=== PATIENT | male | born 1985 | race Caucasian/White ===

== ENCOUNTER 2017-03-12 04:34 | Emergency (ER) | payer OTHER ==
[~2017-03-12] VITALS: Ht 172.7 cm; Wt 75.3 kg
[2017-03-12 05:36] LABS: BASO # 0.1 K/mm3 (0.0-0.2); BASO % 0.8 % (0.0-1.0); EOS # 0.4 K/mm3 (0.0-0.50); EOS % 4.9 % (0.0-3.0); LARGE UNSTAINED CELL # 0.2 K/mm3 (0.0-0.4); LYMPH % 34.1 % (24.0-44.0); MEAN CORPUSCULAR HEMOGLOBIN 30.3 pg (27.0-33.0); MEAN CORPUSCULAR HGB CONC 35.3 g/dl (32.0-36.5); MEAN CORPUSCULAR VOLUME 85.8 fl (80.0-96.0); MONO # 0.5 K/mm3 (0.0-0.8); MONO % 6.1 % (0.0-5.0); NEUTROPHILS # 4.3 K/mm3 (1.8-7.7); NEUTROPHILS % 52.2 % (36.0-66.0); PLATELET COUNT, AUTOMATED 245 k/mm3 (150-450); RED CELL DISTRIBUTION WIDTH 12.4 % (11.5-14.5); WHITE BLOOD COUNT 8.3 K/mm3 (4.0-10.0)
[2017-03-12 05:57] LABS: ALBUMIN 4.2 GM/DL (3.2-5.2); ALBUMIN/GLOBULIN RATIO 1.24 (1.00-1.93); ALKALINE PHOSPHATASE 87 U/L (45-117); ALT/SGPT 23 U/L (12-78); AMYLASE 75 U/L (25-115); ANION GAP 5 MEQ/L (8-16); AST/SGOT 20 U/L (15-37); BILIRUBIN,DIRECT 0.1 MG/DL (0.0-0.2); BILIRUBIN,TOTAL 0.4 MG/DL (0.2-1.0); BLOOD UREA NITROGEN 20 MG/DL (7-18); CALCIUM LEVEL 8.9 MG/DL (8.5-10.1); CARBON DIOXIDE LEVEL 30 MEQ/L (21-32); CHLORIDE LEVEL 107 MEQ/L (98-107); CREATININE FOR GFR 1.24 MG/DL (0.70-1.30); GLOMERULAR FILTRATION RATE > 60.0 (>60); GLUCOSE, FASTING 89 MG/DL (70-105); SODIUM LEVEL 142 MEQ/L (136-145); TOTAL PROTEIN 7.6 GM/DL (6.4-8.2)
--- NOTE | 2017-03-12 07:10 | REPUSA ---
CLINICAL HISTORY: Abdominal pain. TECHNIQUE: Multiple axial, sagittal and coronal CT images were obtained through the abdomen and pelvi s without administration of oral or IV contrast material. COMMENTS: The liver is of uniform attenuation without mass or defect. There is no intra or extrahepatic biliary ductal dilatation. The spleen is normal. The gallbladder is within normal limits. The pancreas is of normal contour and attenuation characteristics. There is no evidence of adrenal mass. The kidneys are normal in size, shape and configuration. No renal or ureteral calculi are identified. There is no hydroureter or hydronephrosis. There is no evidence for appendicitis. There is no bowel wall thickening. No evidence for small or la rge bowel obstruction. There is no evidence of abdominal ascites or lymphadenopathy. There is no evidence of intrinsic or extrinsic bladder mass. There is no pelvic ascites or lymphadeno jada. Mild large bowel fecal stasis. Images of the lung bases show no evidence of pleural or parenchymal mass. There are no pleural effusi ons. The bony structures are free of lytic or blastic lesions. IMPRESSION: Mild large bowel fecal stasis. Fluid-filled mildly distended stomach. Mild gastroparesis. Appendicolith without associated inflammatory changes of the appendix. Thank you for your kind referral of this patient.
[2017-03-12] MEDS ORDERED: NAPR500T2 PO (09:14)
[2017-03-12 09:29] VITALS: BP 126/73
--- NOTE | 2017-03-12 09:47 | REP ---
HIGH-RESOLUTION SCROTAL SONOGRAPHY: HISTORY: Left pain. FINDINGS: High-resolution bilateral scrotal sonography shows no evidence of intratesticular mass lesion on either side. Testicular Doppler flow is normal bilaterally. Resistive indices are 0.54 on the right and 0.50 on the left by Doppler. Right testis measures 4.6 x 2.6 x 2.6 cm. Left testicular dimensions are 4.5 x 1.9 x 2.7 cm. There are two cysts in the right epididymis measuring 2 and 3 mm. There is a small left-sided hydrocele. Otherwise unremarkable. IMPRESSION: Small left-sided hydrocele. No intratesticular mass lesion seen. Normal Doppler flow to both testes. Signed by Mehdi Carrillo MD 03/12/2017 10:26 A
== END 2017-03-12 09:31 | disposition home or self-care (01) ==
LOC: M ED 05:24
DX: N43.3 Hydrocele, unspecified (principal)

== ENCOUNTER 2018-08-03 15:20 | Emergency (ER) | payer OTHER ==
[2018-08-03] MEDS: IBUPROFEN 600 MG TAB PO (16:49)
== END 2018-08-03 16:55 | disposition home or self-care (01) ==
LOC: M ED 15:20
DX: S20.212A Contusion of left front wall of thorax, initial encounter (principal); W22.8XXA Striking against or struck by other objects, initial encounter; Y92.89 Other specified places as the place of occurrence of the external cause; Z87.891 Personal history of nicotine dependence
CPT/HCPCS: 71101

== ENCOUNTER → 2018-11-21 | Outpatient (REF) | payer OTHER ==
[~2018-11-21] MED LIST: IBUP-1022 PO; NAPR-885 PO
[2018-11-22 14:47] LABS: INFLUENZA A AMPLIFICATION NEGATIVE (NEGATIVE); INFLUENZA B AMPLIFICATION NEGATIVE (NEGATIVE)
== END ==
LOC: M LAB REF 13:35
PROVIDERS: ATTEND Physician Assistant
DX: J02.9 Acute pharyngitis, unspecified (principal)

== ENCOUNTER → 2018-12-07 | Outpatient (REF) | payer OTHER | LOC: M SFHCPLAZ 11:28 | PROVIDERS: ATTEND Nurse Practitioner Family | DX: J02.9 Acute pharyngitis, unspecified (principal) ==

== ENCOUNTER → 2018-12-23 | Outpatient (REF) | payer OTHER ==
[2018-12-25 10:55] LABS: MONO REFLEX EBV COMP NEGATIVE (NEGATIVE)
[2018-12-28 00:06] LABS: EBV AB TO NUCLEAR ANTIGEN 45.2 U/mL (0.0-17.9); EBV VIRAL CAPSID AG IgM <36.0 U/mL (0.0-35.9)
[2018-12-29 00:08] LABS: CHLAMYDIA PHARYNGEAL APTIMA Negative (Negative); GC PHARYNGEAL APTIMA Negative (Negative)
== END ==
LOC: M SFHCPLAZ 15:25
PROVIDERS: ATTEND Nurse Practitioner Family
DX: J02.9 Acute pharyngitis, unspecified (principal)

== ENCOUNTER → 2019-01-04 | Outpatient (REF) | payer OTHER ==
[2019-01-04 10:31] LABS: BASO # 0.1 10^3/uL (0.0-0.2); BASO % 0.9 % (0.0-1.0); EOS # 0.4 10^3/uL (0.0-0.50); EOS % 4.3 % (0.0-3.0); HEMATOCRIT 45.1 % (42.0-52.0); HEMOGLOBIN 15.2 g/dl (13.5-17.5); LYMPH # 2.8 10^3/uL (1.5-4.5); LYMPH % 34.4 % (24.0-44.0); MEAN CORPUSCULAR HEMOGLOBIN 29.1 pg (27.0-33.0); MEAN CORPUSCULAR HGB CONC 33.7 g/dl (32.0-36.5); MEAN CORPUSCULAR VOLUME 86.4 fl (80.0-96.0); MONO # 0.7 10^3/uL (0.0-0.8); NEUTROPHILS # 4.1 10^3/uL (1.8-7.7); NEUTROPHILS % 51.2 % (36.0-66.0); PLATELET COUNT, AUTOMATED 239 10^3/uL (150-450); RED BLOOD COUNT 5.22 10^6/uL (4.30-6.10); WHITE BLOOD COUNT 8.1 10^3/uL (4.0-10.0)
== END ==
LOC: M SFHCPLAZ 07:58
PROVIDERS: ATTEND Nurse Practitioner Family
DX: J02.9 Acute pharyngitis, unspecified (principal)

== ENCOUNTER → 2019-01-11 | Outpatient (CLI) | payer OTHER ==
[~2019-01-11] MED LIST changes: +E-Z-GAS II EFFERVESCENT PACKET (SODIUM BICARB./CITRIC ACID/SIMETHICONE) As Ordered ONE; +E-Z-HD 98% w/w 340GM SUSP BTL As Ordered ONE; +E-Z-PAQUE 96% w/w SUSP 176GM BTL As Ordered ONE
--- NOTE | 2019-01-11 21:50 | REP ---
Esophagram The procedure was performed under the direct supervision of Dr. Triana. The images were reviewed with Dr. Triana. A single view PA chest x-ray is submitted as a mud grinder film. The superior mediastinal structures are midline. The heart size is within normal limits. The lungs are clear. Liquid barium and gas producing granules were given in the erect position as well as liquid barium in the prone oblique positions in order to perform a double contrast esophagram examination. The oral and pharyngeal stages of deglutition are unremarkable. Esophageal transport is prompt and efficient. In the mid esophagus there are irregular mucosa. Recommend endoscopy for further evaluation. There is a hiatal hernia present. There is gastroesophageal reflux demonstrated to above the level of the miguel. Impression: There is a sliding type hiatal hernia present. There is gastroesophageal reflux demonstrated to above the level of the miguel. There is irregular mucosa in the mid esophagus. Recommend endoscopy for further evaluation. 0.5 minutes of fluoro time was utilized for this procedure. Reviewed by SCARLET Franco 01/11/2019 05:42 P Electronically Signed by José Triana MD 01/11/2019 09:41 P
== END ==
LOC: M RAD 09:40
PROVIDERS: ATTEND Nurse Practitioner Family
DX: R13.10 Dysphagia, unspecified (principal)

== ENCOUNTER → 2019-01-19 | Outpatient (REF) | payer OTHER ==
[~2019-01-19] MED LIST changes: -E-Z-GAS II EFFERVESCENT PACKET (SODIUM BICARB./CITRIC ACID/SIMETHICONE) As Ordered ONE; -E-Z-HD 98% w/w 340GM SUSP BTL As Ordered ONE; -E-Z-PAQUE 96% w/w SUSP 176GM BTL As Ordered ONE
[2019-01-19 12:17] LABS: INFLUENZA A AMPLIFICATION POSITIVE (NEGATIVE); INFLUENZA B AMPLIFICATION NEGATIVE (NEGATIVE)
== END ==
LOC: M LAB REF 11:23
PROVIDERS: ATTEND Physician Assistant
DX: J11.1 Influenza due to unidentified influenza virus with other respiratory manifestations (principal)

== ENCOUNTER 2019-03-06 13:10 | Day surgery (SDC) | payer OTHER ==
[~2019-03-06] VITALS: Ht 170.2 cm; Wt 73.9 kg
[~2019-03-06 13:10] MED LIST changes: +OMEP40CA2 PO
[2019-03-06] MEDS ORDERED: PROPOFOL 200 MG/20 ML VIAL As Ordered ONE (13:55)
[2019-03-06] MEDS ORDERED: LIDOCAINE 2% INJ 100 MG/5 ML SDV (FOR ANES.) As Ordered ONE (13:55)
[2019-03-06] MEDS ORDERED: fentaNYL 100 MCG/2 ML INJECTION (J3010) As Ordered ONE (13:56)
[2019-03-06] MEDS ORDERED: GLYCOPYRROLATE INJ 0.2 MG/ML 2 ML VIAL As Ordered ONE (15:28)
--- NOTE | 2019-03-06 16:00 | ROOR ---
Patient Name: Osman Loera Procedure Date: 03/06/2019 3:24 PM Date of : 1985 Age: 33 Room: [facility] Gender: Male Note Status: Finalized Procedure: Upper GI endoscopy Indications: Dysphagia, Abnormal cine-esophagram Providers: Olvin LOMBARDI MD Referring MD: Renetta Flores NP Requesting Provider: Medicines: Monitored Anesthesia Care Complications: No immediate complications. Procedure: Pre-Anesthesia Assessment: - The heart rate, respiratory rate, oxygen saturations, blood pressure, adequacy of pulmonary ventilation, and response to care were monitored throughout the procedure. The Endoscope was introduced through the mouth, and advanced to the second part of duodenum. The upper GI endoscopy was accomplished without difficulty. The patient tolerated the procedure well. Findings: Mucosal changes including feline appearance, longitudinal furrows, small-caliber esophagus, congestion (edema) and stenosis were found in the entire esophagus. Biopsies were taken with a cold forceps for histology. Biopsies were obtained from the proximal and distal esophagus with cold forceps for histology of suspected eosinophilic esophagitis. One benign-appearing, intrinsic moderate (circumferential scarring or stenosis; an endoscope may pass) stenosis was found at the gastroesophageal junction. This stenosis measured less than one cm (in length). The stenosis was traversed. A TTS dilator was passed through the scope. Dilation with a 15-16.5-18 mm balloon dilator was performed to 16.5 mm. The dilation site was examined and showed complete resolution of luminal narrowing. Very small (insignificant) Hiatal Hernia. The entire examined stomach was normal. The examined duodenum was normal. Impression: - Esophageal mucosal changes suspicious for eosinophilic esophagitis. Biopsied. - Benign-appearing esophageal stenosis. Dilated. - Very small (insignificant) Hiatal Hernia. - Normal stomach. - Normal examined duodenum. Recommendation: - Observe patient's clinical course. - Use Prilosec (omeprazole) 20 mg PO BID indefinitely. - Telephone endoscopist for pathology results in 2 weeks. - (the script was sent to your pharmacy on file) Olvin Lombardi MD Olvin LOMBARDI MD 03/06/2019 3:59:43 PM Electronically signed by Olvin LOMBARDI MD Number of Addenda: 0 Note Initiated On: 03/06/2019 3:24 PM Estimated Blood Loss: Estimated blood loss: none.
[2019-03-06 16:05] VITALS: BP 122/65
== END 2019-03-06 16:12 | disposition home or self-care (01) ==
LOC: M OPP 13:10
PROVIDERS: ATTEND Internal Medicine Gastroenterology
DX: K44.9 Diaphragmatic hernia without obstruction or gangrene (principal); K22.2 Esophageal obstruction; K22.8 Other specified diseases of esophagus; R93.3 Abnormal findings on diagnostic imaging of other parts of digestive tract; R13.10 Dysphagia, unspecified
CPT/HCPCS: 43239; 43249; 88305; J3010

== ENCOUNTER → 2019-12-01 | Outpatient (REF) | payer OTHER ==
[~2019-12-01] MED LIST changes: -OMEP40CA2 PO; +OMEP40CA97 PO
== END ==
LOC: M LAB REF 14:36
PROVIDERS: ATTEND Physician Assistant Medical
DX: R50.9 Fever, unspecified (principal)